=== PATIENT | female | born 1980 | race Caucasian/White ===

== ENCOUNTER 2016-06-30 12:41 | Emergency (ER) | payer OTHER ==
[2016-06-30 12:53] VITALS: TEMP 98.2; BMI 25.0
--- NOTE | 2016-06-30 13:15 | PDOC ---
History of Present Illness - History of Present Illness Initial Comments: 06/30/16 13:46 The patient is a 36 year old female with a past medical hx of prediabetes and UTI who presents to the ED complaining of vaginal discharge and itchiness for 1 week. She notes she had intercourse last week, and reports she felt vaginal burning. She reports she has had vaginal itching and discharge in March and went to her Doctor and was given medication. She notes she also had a Pap smear , which was normal. She reports she is on her third day of her menstrual period and has been experiencing LLQ abdominal pain since yesterday. She rates the abdominal pain as a 7/10 and describes the pain as crampy. The patient is also complaining of lower back pain that started 3 days ago. She denies a hx of STDs. She reports she has three children, two vaginal deliveries and one section, without complications. The patient denies fever, chills, sweats The patient denies chest pain, SOB The patient denies vomiting, diarrhea <Radha Vasques - Last Filed: 06/30/16 13:48> <Jackie Oh - Last Filed: 07/19/16 00:57> - General Chief Complaint: Pain, Acute Stated Complaint: ABD PAIN Time Seen by Provider: 06/30/16 13:09 Past History <Radha Vasques - Last Filed: 06/30/16 13:48> - Past Medical History GI Disorders: Yes (GERD) - Psycho/Social/Smoking Cessation Hx Suicidal Ideation: No Smoking History: Never smoked Have you smoked in the past 12 months: No Hx Alcohol Use: No Drug/Substance Use Hx: No <Jackie Oh - Last Filed: 07/19/16 00:57> - Past Medical History Allergies/Adverse Reactions: Allergies Allergy/AdvReac Type Severity Reaction Status Date / Time No Known Allergies Allergy Verified 06/30/16 12:48 Home Medications: Ambulatory Orders Omeprazole 20 mg PO DAILY 04/14/16 Naproxen [Naprosyn -] 500 mg PO BID PRN #14 tablet 06/30/16 Ranitidine [Zantac -] 150 mg PO BID 06/30/16 Review of Systems - Review of Systems Able to Perform ROS?: Yes Comments:: 06/30/16 13:47 CONSTITUTIONAL: Absent: fever, chills, diaphoresis, generalized weakness, malaise, loss of appetite HEENT: Absent: rhinorrhea, nasal congestion, throat pain, throat swelling, difficulty swallowing, mouth swelling, ear pain, eye pain, visual Changes CARDIOVASCULAR: Absent: chest pain, syncope, palpitations, irregular heart rate, lightheadedness , peripheral edema RESPIRATORY: Absent: cough, shortness of breath, dyspnea with exertion, orthopnea, wheezing, stridor, hemoptysis GASTROINTESTINAL: +LLQ pain. Absent: abdominal distension, nausea, vomiting, diarrhea, constipation, melena, hematochezia GENITOURINARY: +Vaginal discharge and itchiness. Absent: dysuria, frequency, urgency, hesitancy , hematuria, genital pain MUSCULOSKELETAL: Absent: myalgia, arthralgia, joint swelling SKIN: Absent: rash, itching, pallor HEMATOLOGIC/IMMUNOLOGIC: Absent: easy bleeding, easy bruising, lymphadenopathy, frequent infections ENDOCRINE: Absent: unexplained weight gain, unexplained weight loss, heat intolerance, cold intolerance NEUROLOGIC: Absent: headache, focal weakness or paresthesias, dizziness, unsteady gait, seizure, mental status changes, bladder or bowel incontinence PSYCHIATRIC: Absent: anxiety, depression, suicidal or homicidal ideation, hallucinations. <Radha Vasques - Last Filed: 06/30/16 13:48> *Physical Exam - Vital Signs Last Vital Signs Temp Pulse Resp BP Pulse Ox 98.2 F 74 19 114/77 98 06/30/16 12:48 06/30/16 12:48 06/30/16 12:48 06/30/16 12:48 06/30/16 12:48 - Physical Exam Comments: 06/30/16 13:48 GENERAL: Well developed, well nourished. Awake and alert. In no acute distress. HEENT: Normocephalic, atraumatic. PERRLA, EOMI. No conjunctival pallor. Sclera are non- icteric. Moist mucous membranes. Oropharynx is clear. NECK: Supple. Full ROM. No JVD. Carotid pulses 2+ and symmetric, without bruits. No thyromegaly. No lymphadenopathy. CARDIOVASCULAR: Regular rate and rhythm. No murmurs, rubs, or gallops. Distal pulses are 2+ and symmetric. PULMONARY: No evidence of respiratory distress. Lungs clear to auscultation bilaterally. No wheezing, rales or rhonchi. ABDOMINAL: +Suprapubic and LLQ tenderness. Soft. Non-distended. No rebound or guarding. No organomegaly. Normoactive bowel sounds. MUSCULOSKELETAL Normal range of motion at all joints. No bony deformities or tenderness. No CVA tenderness. EXTREMITIES: No cyanosis. No clubbing. No edema. No calf tenderness. SKIN: Warm and dry. Normal capillary refill. No rashes. No jaundice. NEUROLOGICAL: Alert, awake, appropriate. Cranial nerves 2-12 intact. No deficits to light touch and temperature in face, upper extremities and lower extremities. PSYCHIATRIC: Cooperative. Good eye contact. Appropriate mood and affect. <Radha Vasques - Last Filed: 06/30/16 13:48> - Vital Signs Last Vital Signs Temp Pulse Resp BP Pulse Ox 98.2 F 74 19 114/77 98 06/30/16 12:48 06/30/16 12:48 06/30/16 12:48 06/30/16 12:48 06/30/16 12:48 <Jackie Oh - Last Filed: 07/19/16 00:57> ED Treatment Course - LABORATORY CBC & Chemistry Diagram: 06/30/16 13:48 06/30/16 13:48 <Jackie Oh - Last Filed: 07/19/16 00:57> Medical Decision Making - Medical Decision Making 06/30/16 12:15 Patient seen and examined at bedside. Vitals, unremarkable. Patient looks she is in abdominal discomfort. Physical examination positive for abdominal tenderness in the LLQ and suprapubic area. Will order CBC, CMP, UA, test, Abdominal CT with IV contrast No pain medication needed as per the patient. 06/30/16 15:38 Patient reassessed. Waiting for Abdominal CT scan. Ordered GC amplification. 06/30/16 16:[address] scan of abdomen report reviewed, no evidence of colitis or acute diverticulitis. 1.8 x 1.3 cm right ovarian cyst/dorminant follicle with a small amount of free fluid on the cul-de-sac which is non specific. Retroverted Uterus with an IUD in place. To r/o tortion of ovary will order Transvaginal Ultrasound. Patient mentions her left ovary was removed after she had a cyst in 2000. A/P Abdominal pain most likely due to ovarian cyst CT report mentioned Transvaginal ultrasound ordered- Pending results Patient endorsed to Dr. José. Illness, Investigation and plan of care explained to the patient. She verbalized understanding. Case seen and discussed with Dr. Monterroso. <Jackie Oh - Last Filed: 07/19/16 00:57> *DC/Admit/Observation/Transfer <Radha Vasques - Last Filed: 06/30/16 13:48> <Jackie Oh - Last Filed: 07/19/16 00:57> Diagnosis at time of Disposition: Ovarian cyst - Discharge Dispostion Disposition: HOME Condition at time of disposition: Improved - Prescriptions Prescriptions: Naproxen [Naprosyn -] 500 mg PO BID PRN #14 tablet PRN Reason: Pain - Referrals Referrals: Lm Marsh MD [Staff Physician] - Kunal Beltran MD [Primary Care Provider] - - Patient Instructions Printed Discharge Instructions: DI for Ovarian Cyst Additional Instructions: Please follow up with an packaging operator doctor. Call to schedule an appointment. Take 500 mg naproxen every 12 hours as needed for pain. It may take several days before your symptoms improve. Print Language: TAMAZIGHT
[2016-06-30 13:58] LABS: URINE APPEARANCE CLEAR; URINE BILIRUBIN NEGATIVE (NEGATIVE); URINE BLOOD 3+ (NEGATIVE); URINE COLOR COLORLESS; URINE GLUCOSE (UA) NEGATIVE (NEGATIVE); URINE KETONE NEGATIVE (NEGATIVE); URINE LEUK ESTERASE NEGATIVE (NEGATIVE); URINE NITRITE NEGATIVE (NEGATIVE); URINE PROTEIN NEGATIVE (NEGATIVE); URINE UROBILINOGEN NEGATIVE E.U./dl (0.2-1.0)
[2016-06-30 14:04] LABS: URINE MUCUS RARE; URINE RBC <1 /hpf (0-3); URINE WBC 1 /hpf (3-5)
[2016-06-30 14:13] LABS: BASOPHIL 0.7 % (0-2.0); EOSINOPHIL 1.7 % (0-4.5); MCH 28.8 pg (25.7-33.7); MCHC 33.4 g/dl (32.0-36.0); MEAN CELL VOLUME 86.3 fl (80-96); MEAN PLT VOLUME 8.1 fl (7.5-11.1); NEUTROPHILS 78.1 % (42.8-82.8); PLATELET COUNT 260 K/MM3 (134-434); RDW 12.7 % (11.6-15.6); WHITE BLOOD COUNT 9.4 K/mm3 (4.0-10.0)
[2016-06-30 14:40] LABS: ALBUMIN 3.9 g/dl (3.4-5.0); ANION GAP 8 (8-16); BILIRUBIN,TOTAL 0.3 mg/dL (0.2-1.0); CALCIUM 8.7 mg/dL (8.5-10.1); CO2 26 mmol/L (21-32); CREATININE 0.5 mg/dL (0.55-1.02); GLUCOSE,RANDOM 101 mg/dL (74-106); SGOT/AST 9 U/L (15-37); SGPT/ALT 17 U/L (12-78); TOT PROT 7.2 g/dl (6.4-8.2)
[2016-06-30 14:41] LABS: ALK PHOS 60 U/L (45-117)
--- NOTE | 2016-06-30 15:37 | PDOC ---
Attending Attestation - Resident Resident Name: Mira Ohny - ED Attending Attestation I have performed the following: I have examined & evaluated the patient, The case was reviewed & discussed with the resident, I agree w/resident's findings & plan, Exceptions are as noted - HPI HPI: 06/30/16 15:36 The patient is a 36-year-old female, with no significant past medical history, who presents to the emergency department with mild left lower quadrant and suprapubic pain, which she has been experiencing intermittently for the last 3 days. She is currently menstruating. - Physicial Exam PE: 06/30/16 15:37 Serial abdominal examinations with extremely minimal tenderness to deep palpation in the suprapubic area and left lower quadrant - Medical Decision Making 06/30/16 15:37 Labs noted including normal white blood cell count, normal differential, normal CRP Repeat abdominal examination, soft and nontender 06/30/16 16:34 CT pending Repeat abdominal examination; soft and nontender 06/30/16 16:50 CT performed and pending Case discussed in detail with oncoming Emergency Physician including history, physical exam and ancillary studies. Oncoming Emergency Physician has assumed care for the patient and will complete the evaluation and treatment.
[2016-06-30] MEDS ORDERED: MAG HYDROX/AL HYDROX/SIMETH 30 ML UNIT-DOSE CUP PO ONE (15:54)
[2016-06-30] MEDS ORDERED: MAG HYDROX/AL HYDROX/SIMETH 30 ML UNIT-DOSE CUP ONE (16:10)
[2016-06-30 18:47] VITALS: BP 117/65; PULSE 71
[2016-06-30] MEDS ORDERED: NAPROXEN 500 MG TABLET (FP) PO ONE (20:29)
--- NOTE | 2016-06-30 20:30 | PDOC ---
*Physical Exam - Vital Signs Last Vital Signs Temp Pulse Resp BP Pulse Ox 98.2 F 71 17 117/65 98 06/30/16 12:48 06/30/16 18:30 06/30/16 18:30 06/30/16 18:30 06/30/16 18:30 ED Treatment Course - LABORATORY CBC & Chemistry Diagram: 06/30/16 13:48 06/30/16 13:48 - ADDITIONAL ORDERS Additional order review: Laboratory Results 06/30/16 06/30/16 06/30/16 14:00 13:48 13:18 Sodium 140 Potassium 3.9 Chloride 106 Carbon Dioxide 26 Anion Gap 8 BUN 10 Creatinine 0.5 L Creat Clearance w eGFR > 60 Random Glucose 101 Calcium 8.7 Total Bilirubin 0.3 AST 9 L ALT 17 D Alkaline Phosphatase 60 C-Reactive Protein < 0.3 Total Protein 7.2 Albumin 3.9 Urine Color Urine Appearance Urine pH Ur Specific [place] Urine Protein Urine Glucose (UA) Urine Ketones Urine Blood Urine Nitrite Urine Bilirubin Urine Urobilinogen Ur Leukocyte Esterase Urine RBC Urine WBC Ur Epithelial Cells Urine Mucus Urine HCG, Qual Negative 06/30/16 13:18 Sodium Potassium Chloride Carbon Dioxide Anion Gap BUN Creatinine Creat Clearance w eGFR Random Glucose Calcium Total Bilirubin AST ALT Alkaline Phosphatase C-Reactive Protein Total Protein Albumin Urine Color Colorless Urine Appearance Clear Urine pH 6.0 Ur Specific [place] 1.003 Urine Protein Negative Urine Glucose (UA) Negative Urine Ketones Negative Urine Blood 3+ H Urine Nitrite Negative Urine Bilirubin Negative Urine Urobilinogen Negative Ur Leukocyte Esterase Negative Urine RBC <1 Urine WBC 1 Ur Epithelial Cells Rare Urine Mucus Rare Urine HCG, Qual 06/30/16 13:48 RBC 4.39 MCV 86.3 MCHC 33.4 RDW 12.7 MPV 8.1 Neutrophils % 78.1 Lymphocytes % 14.9 Monocytes % 4.6 Eosinophils % 1.7 Basophils % 0.7 - Medications Given in the ED: ED Medications Discontinued Medications Generic Name Dose Route Start Last Admin Trade Name Freq PRN Reason Stop Dose Admin Al Hydroxide/Mg Hydroxide 30 ml 06/30/16 15:54 06/30/16 16:39 Mylanta Oral Suspension - PO 06/30/16 15:55 30 ml ONCE ONE Administration Medical Decision Making - Medical Decision Making 06/30/16 20:27 Sign-out received from outgoing Emergency Physician Dr. Corvini Pt interviewed and examined Ancillary studies reviewed Case discussed in detail with oncoming Emergency Physician including history, physical exam and ancillary studies. Vital Signs Temp Pulse Resp BP Pulse Ox 98.2 F 71 17 117/65 98 06/30/16 12:48 06/30/16 18:30 06/30/16 18:30 06/30/16 18:30 06/30/16 18:30 I had seen this patient and evaluated her after sign out. The patient has been having lower abdominal pain. CT scan reviewed. R ovarian cyst. Confirmed by ultrasound. Likely hemorrhagic cyst. Patient reports that currently is on her period. She has an IUD and no left ovary as it was taken out in the past. I had reviewed the blood work and the imaging with the patient. She understands that her pain is from the cyst. I will give her a referral to an clinical abstractor doctor. I discussed the physical exam findings, ancillary test results and final diagnoses with the patient. I answered all of the patient's questions. The patient was satisfied with the care received and felt comfortable with the discharge plan and treatment plan. The patient will call their primary care physician within 24 hours to arrange follow-up and will return to the Emergency Department with any new, persistant or worsening symptoms. *DC/Admit/Observation/Transfer Diagnosis at time of Disposition: Ovarian cyst Qualifiers: Laterality: right Qualified Code(s): N83.20 - Unspecified ovarian cysts - Discharge Dispostion Disposition: HOME Condition at time of disposition: Improved Admit: No - Prescriptions Prescriptions: Naproxen [Naprosyn -] 500 mg PO BID PRN #14 tablet PRN Reason: Pain - Referrals Referrals: Kunal Beltran MD [Primary Care Provider] - Lm Marsh MD [Staff Physician] - - Patient Instructions Printed Discharge Instructions: DI for Ovarian Cyst Additional Instructions: Please follow up with an clinical abstractor doctor. Call to schedule an appointment. Take 500 mg naproxen every 12 hours as needed for pain. It may take several days before your symptoms improve. Print Language: COMORAN
[2016-06-30] MEDS ORDERED: NAPROXEN 500 MG TABLET (FP) ONE (20:32)
== END 2016-06-30 21:23 | disposition home or self-care (01) ==
LOC: JER 12:41
DX: N83.201 Unspecified ovarian cyst, right side (principal); Z97.5 Presence of (intrauterine) contraceptive device
CPT/HCPCS: 36415; 74177-TC; 76830-TC; 80053; 81003; 81015; 84703; 85025; 86140; 87086; 87491; 87591; 99283-25; Q9967

== ENCOUNTER 2018-10-04 22:30 | Emergency (ER) | payer OTHER | END 2018-10-05 00:42 | disposition home or self-care (01) | LOC: JER 10-05 00:42 | PROC: 3E0337Z Introduction of Electrolytic and Water Balance Substance into Peripheral Vein, Percutaneous Approach (ICD-10-PCS; principal; 2018-10-04) | DX: K52.9 Noninfective gastroenteritis and colitis, unspecified (principal) ==

== ENCOUNTER 2019-03-07 13:30 | Emergency (ER) | payer OTHER ==
[2019-03-07 13:41] VITALS: BMI 24.0
[2019-03-07] MEDS ORDERED: METOCLOPRAMIDE HCL INJECTION 10 MG/2 ML VIAL IVPB ONE (15:01)
[2019-03-07] MEDS ORDERED: ONDANSETRON *ODT* 4 MG TABLET SL ONE (15:01)
[2019-03-07] MEDS ORDERED: SODIUM CHLORIDE 1,000 ML IV STA (15:02)
[2019-03-07] MEDS ORDERED: METOCLOPRAMIDE HCL INJECTION 10 MG/2 ML VIAL ONE (15:16)
[2019-03-07] MEDS ORDERED: ONDANSETRON *ODT* 4 MG TABLET ONE (15:16)
[2019-03-07 15:23] LABS: EOS % 0.9 % (0-4.5); HEMATOCRIT 39.3 % (32.4-45.2); HEMOGLOBIN 13.7 GM/dL (10.7-15.3); LYMPH % 10.7 % (8-40); MCH 30.5 pg (25.7-33.7); MCHC 34.7 g/dl (32.0-36.0); MEAN CELL VOLUME 87.8 fl (80-96); MEAN PLT VOLUME 8.2 fl (7.5-11.1); MONO % 3.6 % (3.8-10.2); NEUT % 83.8 % (42.8-82.8); PLATELET COUNT 307 K/MM3 (134-434); RBC 4.48 M/mm3 (3.60-5.2); WHITE BLOOD COUNT 12.9 K/mm3 (4.0-10.0)
[2019-03-07 15:39] LABS: EPI CELLS 7.5 /HPF (0-5/HPF); HYALINE CASTS 22 /lpf (0-8); URINE APPEARANCE CLOUDY; URINE BACTERIA 89.5 /hpf (NEGATIVE); URINE BILIRUBIN NEGATIVE (NEGATIVE); URINE COLOR YELLOW; URINE GLUCOSE (UA) NEGATIVE (NEGATIVE); URINE KETONE NEGATIVE (NEGATIVE); URINE LEUK ESTERASE 1+ (NEGATIVE); URINE NITRITE NEGATIVE (NEGATIVE); URINE PROTEIN TRACE (NEGATIVE); URINE RBC 6 /hpf (0-4); URINE UROBILINOGEN 0.2 mg/dL (0.2-1.0); URINE WBC 10 /hpf (0-5)
[2019-03-07] MEDS ORDERED: MECLIZINE HCL 25 MG TABLET (FP) ONE ×2 (15:42→18:51)
--- NOTE | 2019-03-07 16:00 | PDOC ---
History of Present Illness - General Chief Complaint: Lightheaded Stated Complaint: DIZZINESS/VOMITING Time Seen by Provider: 03/07/19 14:58 History Source: Patient Exam Limitations: Clinical Condition - History of Present Illness Initial Comments: 03/07/19 15:55 Patient with no significant past medical history presented with complaint of sudden onset of dizziness and spinning sensation upon with this morning with one episode of vomiting. Patient denies any trauma or injury to head. Denies blurry vision, change in vision or photosensitivity. Denies shortness of breath , chest pain, abdominal pain, urinary frequency, dysuria or burning with urination. Patient did not take anything for symptoms Is this a multiple visit Asthma Patient?: No Past History - Past Medical History Allergies/Adverse Reactions: Allergies Allergy/AdvReac Type Severity Reaction Status Date / Time No Known Allergies Allergy Verified 10/04/18 23:09 Home Medications: Ambulatory Orders Omeprazole 20 mg PO DAILY 04/14/16 Naproxen [Naprosyn -] 500 mg PO BID PRN #14 tablet 06/30/16 Ranitidine [Zantac -] 150 mg PO BID 06/30/16 Loperamide HCl/Simethicone [Imodium Multi-Symptom Rel Cplt] 1 each PO TID PRN # 15 tablet 10/05/18 COPD: No GI Disorders: Yes (GERD) - Reproductive History Therapeutic (s) & number: No - Immunization History Immunization Up to Date: No - Psycho Social/Smoking Cessation Hx Smoking History: Never smoked Have you smoked in the past 12 months: No Information on smoking cessation initiated: No Hx Alcohol Use: No Drug/Substance Use Hx: No Review of Systems - Review of Systems Able to Perform ROS?: Yes Is the patient limited Vietnamese proficient: No Constitutional: No: Chills, Fever, Malaise, Weakness HEENTM: No: Symptoms Reported, See HPI, Eye Pain, Blurred Vision, Tearing, Recent change in vision, Double Vision, Cataracts, Ear Pain, Ocular Prothesis, Ear Discharge, Nose Pain, Nose Congestion, Tinnitus, Nose Bleeding, Hearing Loss , Throat Pain, Throat Swelling, Mouth Pain, Dental Problems, Difficulty Swallowing, Mouth Swelling, Other Respiratory: No: Symptoms reported, See HPI, Cough, Orthopnea, Shortness of Breath, SOB with Exertion, SOB at Rest, Stridor, Wheezing, Productive cough, Hemoptysis, Other Cardiac (ROS): Yes: Symptoms Reported, See HPI, Lightheadedness. No: Chest Pain , Edema, Irregular Heart Rate, Palpitations, Syncope, Chest Tightness, Other ABD/GI: Yes: Symptoms Reported, See HPI, Nausea, Vomiting. No: Abd. Pain w/ defecation, Constipated, Diarrhea, Difficulty Swallowing, Rectal Bleeding, Abdominal cramping : No: Symptoms Reported, Burning, Discharge, Frequency, Hematuria, Pain, Urgency Musculoskeletal: No: Symptoms Reported Integumentary: No: Symptoms Reported Neurological: Yes: Symptoms reported, See HPI, Headache (mild headache), Dizziness. No: Numbness, Paresthesia, Pre-Existing Deficit, Seizure, Tingling, Tremors, Weakness, Unsteady Gait All Other Systems: Reviewed and Negative *Physical Exam - Vital Signs Last Vital Signs Temp Pulse Resp BP Pulse Ox 98.1 F 73 18 112/73 98 03/07/19 13:38 03/07/19 13:38 03/07/19 13:38 03/07/19 13:38 03/07/19 13:38 - Physical Exam Comments: 03/07/19 15:59 GENERAL: Well developed, well nourished. Awake and alert. No acute distress. HEENT: Normocephalic, atraumatic. PERRLA, EOMI. No conjunctival pallor. Sclera are non- icteric. Moist mucous membranes. Oropharynx is clear. NECK: Supple. Full ROM. No JVD. Carotid pulses 2+ and symmetric, without bruits. No lymphadenopathy. CARDIOVASCULAR: Regular rate and rhythm. No murmurs, rubs, or gallops. Distal pulses are 2+ and symmetric. PULMONARY: No evidence of respiratory distress. Lungs clear to auscultation bilaterally. No wheezing, rales or rhonchi. ABDOMINAL: Soft. Non-tender. Non-distended. No rebound or guarding. No organomegaly. Normoactive bowel sounds. MUSCULOSKELETAL Normal range of motion at all joints. No bony deformities or tenderness. No CVA tenderness. SKIN: Warm and dry. Normal capillary refill. No jaundice. NEUROLOGICAL: Alert, awake, appropriate. Cranial nerves 2-12 intact. No deficits to light touch in face, upper extremities and lower extremities. No motor deficits in the in face, upper extremities and lower extremities. Normal speech. Gait is normal without ataxia. PSYCHIATRIC: Cooperative. Good eye contact. Appropriate mood and affect. General Appearance: Yes: Nourished, Appropriately Dressed. No: Apparent Distress ED Treatment Course - LABORATORY CBC & Chemistry Diagram: 03/07/19 15:06 03/07/19 15:06 - ADDITIONAL ORDERS Additional order review: Laboratory Results 03/07/19 03/07/19 15:06 15:04 Urine Color Yellow Urine Appearance Cloudy Urine pH 7.0 Ur Specific [place] 1.021 Urine Protein Trace Urine Glucose (UA) Negative Urine Ketones Negative Urine Blood Negative Urine Nitrite Negative Urine Bilirubin Negative Urine Urobilinogen 0.2 Ur Leukocyte Esterase 1+ H Urine WBC (Auto) 10 Urine RBC (Auto) 6 Urine Casts (Auto) 22 U Epithel Cells (Auto) 7.5 Urine Bacteria (Auto) 89.5 Urine HCG, Qual Negative 03/07/19 15:06 RBC 4.48 MCV 87.8 MCHC 34.7 RDW 13.0 MPV 8.2 Neutrophils % 83.8 H D Lymphocytes % 10.7 D Monocytes % 3.6 L Eosinophils % 0.9 Basophils % 1.0 - Medications Given in the ED: ED Medications Discontinued Medications Generic Name Dose Route Start Last Admin Trade Name Freq PRN Reason Stop Dose Admin Metoclopramide HCl 10 mg 03/07/19 15:01 03/07/19 15:21 Reglan Injection - IVPB 03/07/19 15:02 10 mg ONCE ONE Administration Ondansetron HCl 4 mg 03/07/19 15:01 03/07/19 15:21 Zofran Odt - SL 03/07/19 15:02 4 mg ONCE ONE Administration Medical Decision Making - Medical Decision Making 03/07/19 15:56 Patient with no significant past medical history presented with complaint of sudden onset of dizziness and spinning sensation upon with this morning with one episode of vomiting. Patient denies any trauma or injury to head. Denies blurry vision, change in vision or photosensitivity. Denies shortness of breath , chest pain, abdominal pain, urinary frequency, dysuria or burning with urination. Patient did not take anything for symptoms. Patient reporting mother with a history of vertigo but denies self history of vertigo. Clinical exam unremarkable with normal neuro exam. Patient with nausea during exam. Symptoms likely vertigo versus less likely intracranial occupying mass versus UTI. CBC, CMP, UA urine culture lab ordered. IV hydration with normal saline ordered for hydration. Reglan 10 mg IV ordered for possible vertigo. Treat based on lab results. Reassess after 30 minutes 03/07/19 16:15 Patient with mild improvement post reglan. IV hydration still going. Patient signedout to oncoming AIR POLLUTION ANALYST Vladimir for f/u care Discharge - Discharge Information Problems reviewed: Yes Clinical Impression/Diagnosis: Dizziness Condition: Stable - Follow up/Referral - Patient Discharge Instructions - Post Discharge Activity
--- NOTE | 2019-03-07 17:52 | PDOC ---
*Physical Exam - Vital Signs Last Vital Signs Temp Pulse Resp BP Pulse Ox 98.4 F 63 19 110/61 100 03/07/19 17:35 03/07/19 17:35 03/07/19 17:35 03/07/19 17:35 03/07/19 17:35 ED Treatment Course - LABORATORY CBC & Chemistry Diagram: 03/07/19 15:06 03/07/19 17:05 - ADDITIONAL ORDERS Additional order review: Laboratory Results 03/07/19 03/07/19 03/07/19 15:06 15:06 15:04 Sodium Cancelled Potassium Cancelled Chloride Cancelled Carbon Dioxide Cancelled Anion Gap Cancelled BUN Cancelled Creatinine Cancelled Est GFR (CKD-EPI)AfAm Cancelled Est GFR (CKD-EPI)NonAf Cancelled Random Glucose Cancelled Calcium Cancelled Total Bilirubin Cancelled AST Cancelled ALT Cancelled Alkaline Phosphatase Cancelled Creatine Kinase Cancelled Troponin I Cancelled Total Protein Cancelled Albumin Cancelled Urine Color Yellow Urine Appearance Cloudy Urine pH 7.0 Ur Specific Hanna 1.021 Urine Protein Trace Urine Glucose (UA) Negative Urine Ketones Negative Urine Blood Negative Urine Nitrite Negative Urine Bilirubin Negative Urine Urobilinogen 0.2 Ur Leukocyte Esterase 1+ H Urine WBC (Auto) 10 Urine RBC (Auto) 6 Urine Casts (Auto) 22 U Epithel Cells (Auto) 7.5 Urine Bacteria (Auto) 89.5 Urine HCG, Qual Negative 03/07/19 15:06 RBC 4.48 MCV 87.8 MCHC 34.7 RDW 13.0 MPV 8.2 Neutrophils % 83.8 H D Lymphocytes % 10.7 D Monocytes % 3.6 L Eosinophils % 0.9 Basophils % 1.0 - Medications Given in the ED: ED Medications Discontinued Medications Generic Name Dose Route Start Last Admin Trade Name Freq PRN Reason Stop Dose Admin Sodium Chloride 1,000 mls @ 1,000 mls/hr 03/07/19 15:02 03/07/19 15:21 Normal Saline - IV 03/07/19 16:01 1,000 mls/hr ASDIR STA Administration Metoclopramide HCl 10 mg 03/07/19 15:01 03/07/19 15:21 Reglan Injection - IVPB 03/07/19 15:02 10 mg ONCE ONE Administration Ondansetron HCl 4 mg 03/07/19 15:03/07/19 15:21 Zofran Odt - SL 03/07/19 15:02 4 mg ONCE ONE Administration ED Progress Note - Progress Note Progress Note: 03/07/19 17:52 Received signout from CAM Craven Briefly this is a 39-year-old woman denies past medical history with sudden onset room spinning dizziness with nausea and one episode of vomiting starting today. Patient has received Reglan IV and normal saline. Laboratory testing is pending at this time will reassess after laboratory testing has been completed Medical Decision Making - Medical Decision Making 03/07/19 17:54 A/P: 39-year-old woman with dizziness pending results of laboratory testing for disposition Repeat exam is unremarkable. Patient reports improvement in symptoms after receiving Reglan. CMP was hemolyzed and was reordered. EKG order added Awaiting results of CMP and cardiac profile for disposition 03/07/19 18:53 CMP and cardiac profile are unremarkable. Patient was able to tolerate p.o.'s without difficulty. We will discharge patient home follow-up with her primary doctor for continued evaluation. I discussed the physical exam findings, ancillary test results and final diagnoses with the patient. I answered all of the patient's questions. The patient was satisfied with the care received and felt comfortable with the discharge plan and treatment plan. The patient will call their primary care physician within 24 hours to arrange follow-up and will return to the Emergency Department with any new, persistent or worsening symptoms. Discharge - Discharge Information Problems reviewed: Yes Clinical Impression/Diagnosis: BPPV (benign paroxysmal positional vertigo) Qualifiers: Laterality: unspecified laterality Qualified Code(s): H81.10 - Benign paroxysmal vertigo, unspecified ear Condition: Fair - Admission No - Additional Discharge Information Prescriptions: Diazepam [Valium] 5 mg PO Q8H PRN #10 tablet MDD 3 PRN Reason: Vertigo Meclizine HCl [Antivert -] 25 mg PO TID #90 tablet - Follow up/Referral - Patient Discharge Instructions Additional Instructions: Take meclizine as prescribed for dizziness. If that does not work you have volume to take just 5 mg every 8 hours as needed for dizziness. Your emergency department visit is not complete until you follow-up with your primary doctor. Keep well-hydrated Return to the emergency department for any new or worsening symptoms. Thank you very much for choosing us to provide your emergent health care needs. Odell dennis meclizina segn lo prescrito para los mareos. Si eso no funciona, tiene volumen para kavita solo 5 mg cada 8 horas segn sea necesario para mareos. Jones visita al departamento de emergencias no est completa hasta que ike un seguimiento con jones mdico de cabecera. Mantener sonia hidratado. Regrese al departamento de emergencias por cualquier sntoma nuevo o que empeore. Muchas radha por elegirnos para satisfacer olga necesidades de atencin mdica de emergencia. - Post Discharge Activity Work/Back to School Note: Back to Work
[2019-03-07 18:07] LABS: ALBUMIN 4.1 g/dl (3.4-5.0); ALK PHOS 73 U/L (45-117); ANION GAP 7 MMOL/L (8-16); BILIRUBIN,TOTAL 0.4 mg/dL (0.2-1); BLOOD UREA NITROGEN 12.1 mg/dL (7-18); CALCIUM 9.1 mg/dL (8.5-10.1); CHLORIDE 104 mmol/L (98-107); CO2 26 mmol/L (21-32); CREATININE 0.6 mg/dL (0.55-1.3); GLUCOSE,RANDOM 106 mg/dL (74-106); POTASSIUM 4.2 mmol/L (3.5-5.1); SGOT/AST 15 U/L (15-37); SGPT/ALT 29 U/L (13-61); SODIUM 136 mmol/L (136-145); TOT PROT 7.7 g/dl (6.4-8.2)
[2019-03-07 18:20] VITALS: BP 114/65; PULSE 76; TEMP 98
[2019-03-07] MEDS ORDERED: MECLIZINE HCL 25 MG TABLET (FP) PO ONE (18:49)
== END 2019-03-07 19:03 | disposition home or self-care (01) ==
LOC: JER 13:30
PROC: 3E033GC Introduction of Other Therapeutic Substance into Peripheral Vein, Percutaneous Approach (ICD-10-PCS; principal; 2019-03-07)
DX: H81.10 Benign paroxysmal vertigo, unspecified ear (principal); K21.9 Gastro-esophageal reflux disease without esophagitis
CPT/HCPCS: 36415; 80053; 81003; 82550; 84484; 84703; 85025; 87086; 99284-25; J7030; Q0162

== ENCOUNTER 2019-07-28 20:16 | Emergency (ER) | payer OTHER ==
[2019-07-28 20:18] VITALS: BP 121/76; PULSE 97; TEMP 98.9
--- NOTE | 2019-07-28 20:23 | PDOC ---
Rapid Medical Evaluation Chief Complaint: Respiratory Time Seen by Provider: 07/28/19 20:17 Medical Evaluation: Allergies Allergy/AdvReac Type Severity Reaction Status Date / Time No Known Allergies Allergy Verified 10/04/18 23:09 Vital Signs Temp Pulse Resp BP Pulse Ox 98.9 F 97 H 20 121/76 100 07/28/19 20:17 07/28/19 20:17 07/28/19 20:17 07/28/19 20:17 07/28/19 20:17 07/28/19 20:17 I have performed a brief in-person evaluation of this patient. The patient presents with a chief complaint of: No sig Pmhx present with complains of 3 days h/o dry cough, nasal congestion, runny nose and malaise. Denies fever, chills, N/V,dizziness, CP. Denies recent travel or known contact with any one with covid Pertinent physical exam findings: lungs CTAB in NAD. pt afebrile. normal cardio. A&O x 3 A/P: 39yo with no PMHx present with complains of 3 days h/o URI symptoms. Pt clinical exam unremarkable stable for d/c on outpatient conservation management on Tessalon perles for cough, atrovent nasal congestion and medrol-joaquin with advice to increase fluid intake with PCP f/u Discharge Disposition - Diagnosis URI, acute - Discharge Dispostion Disposition: HOME Condition at time of disposition: Stable Decision to Admit order: No - Prescriptions Prescriptions: Ipratropium Unity 2 spray NS BID PRN 5 Days #1 spray PRN Reason: nasal congestion Methylprednisolone [Medrol Dose Joaquin] 4 mg PO ASDIR #21 tablet Benzonatate [Tessalon Pearls -] 100 mg PO TID PRN #21 capsule PRN Reason: Cough - Referrals - Patient Instructions Printed Discharge Instructions: [facility]-Coronavirus Instructions Additional Instructions: Your symptoms is likely viral symptoms. Take prescribed medications as prescribed for cough and congestion. Increase fluid intake. wear mask at all times until improved symptoms and refrain from public gatherings - Post Discharge Activity
== END 2019-07-28 20:53 | disposition home or self-care (01) ==
LOC: JER 20:16
DX: J06.9 Acute upper respiratory infection, unspecified (principal)
CPT/HCPCS: 99283-25

== ENCOUNTER 2021-03-02 16:53 | Emergency (ER) | payer OTHER ==
[2021-03-02 17:39] VITALS: BP 114/76; PULSE 69; TEMP 98; BMI 29.2
[2021-03-02 19:29] LABS: BASO % 0.8 % (0-2.0); EOS % 4.3 % (0-4.5); LYMPH % 29.4 % (8-40); MCH 29.3 pg (25.7-33.7); MCHC 34.2 g/dl (32.0-36.0); MEAN CELL VOLUME 85.7 fl (80-96); MEAN PLT VOLUME 7.6 fl (7.5-11.1); MONO % 4.5 % (3.8-10.2); PLATELET COUNT 307 10^3/uL (134-434); RBC 4.43 M/mm3 (3.60-5.2); RDW 13.1 % (11.6-15.6); WHITE BLOOD COUNT 9.6 K/mm3 (4.0-10.0)
[2021-03-02 19:48] LABS: CHLORIDE 107 mmol/L (98-107); SODIUM 138 mmol/L (136-145)
[2021-03-02 19:49] LABS: CALCIUM 9.1 mg/dL (8.5-10.1)
[2021-03-02 19:50] LABS: ANION GAP 9 MMOL/L (8-16); CO2 23 mmol/L (21-32); GLUCOSE,RANDOM 99 mg/dL (74-106)
[2021-03-02 19:53] LABS: CREATININE 0.6 mg/dL (0.55-1.3)
== END 2021-03-02 19:48 | disposition home or self-care (01) ==
LOC: JER 16:53
DX: N93.9 Abnormal uterine and vaginal bleeding, unspecified (principal)
CPT/HCPCS: 36415; 80048; 84702; 85025; 99283-25

== ENCOUNTER 2021-10-31 13:29 | Emergency (ER) | payer OTHER ==
[2021-10-31 13:35] VITALS: BP 109/73; PULSE 84; TEMP 97.9; BMI 30.1
[2021-10-31] MEDS ORDERED: IBUPROFEN 600 MG TABLET (FP) PO ONE ×2 (14:14→14:15)
== END 2021-10-31 15:19 ==
LOC: JER 13:29
DX: J06.9 Acute upper respiratory infection, unspecified (principal)
CPT/HCPCS: 0241U-QW; 99283-25

== ENCOUNTER 2023-05-07 05:08 | Emergency (ER) | payer OTHER ==
[2023-05-07 05:24] VITALS: BMI 30.2
[2023-05-07] MEDS ORDERED: ACETAMINOPHEN 1000 MG/100 ML BAG IVPB ONE ×2 (07:35→07:36)
[2023-05-07] MEDS ORDERED: LACTATED RINGERS SOLUTION 1000 ML INFUS.BAG IV ONE ×2 (07:35→07:36)
[2023-05-07] MEDS ORDERED: ACETAMINOPHEN INJECTION 100 ML IVPB ONE (07:39)
[2023-05-07 08:20] LABS: INR 1.15 (0.83-1.09); PROTHROMBIN TIME (PATIENT) 13.3 SEC (9.7-13.0)
[2023-05-07 08:27] LABS: POTASSIUM 3.9 mmol/L (3.5-5.1)
[2023-05-07 08:29] LABS: CALCIUM 8.7 mg/dL (8.5-10.1)
[2023-05-07 08:30] LABS: ALBUMIN 4.1 g/dl (3.4-5.0); BLOOD UREA NITROGEN 7.2 mg/dL (7-18); MAGNESIUM 2.1 mg/dL (1.8-2.4)
[2023-05-07 08:32] LABS: HEMATOCRIT 35.3 % (32.4-45.2); HEMOGLOBIN 12.2 GM/dL (10.7-15.3); MCH 29.9 pg (25.7-33.7); MCHC 34.5 g/dl (32.0-36.0); MEAN CELL VOLUME 86.5 fl (80-96); MEAN PLT VOLUME 8.8 fl (7.5-11.1); PLATELET COUNT 334 10^3/uL (134-434); RBC 4.08 M/mm3 (3.60-5.2); RDW 13.4 % (11.6-15.6)
[2023-05-07 08:34] LABS: CREATININE 0.6 mg/dL (0.55-1.3); WHITE BLOOD COUNT 6.1 K/mm3 (4.0-10.0)
[2023-05-07 08:35] LABS: BILIRUBIN,TOTAL 0.2 mg/dL (0.2-1); TOT PROT 7.6 g/dl (6.4-8.2)
[2023-05-07 09:22] LABS: ANISOCYTOSIS 1+; MACROCYTOSIS 0
[2023-05-07 09:29] VITALS: BP 123/76; PULSE 73; RESP 19; TEMP 98.1
== END 2023-05-07 09:45 | disposition home or self-care (01) ==
LOC: JER 05:08
PROC: 3E033NZ Introduction of Analgesics, Hypnotics, Sedatives into Peripheral Vein, Percutaneous Approach (ICD-10-PCS; principal; 2023-05-07)
DX: R42 Dizziness and giddiness (principal); R53.1 Weakness; R05.9 Cough, unspecified; J10.1 Influenza due to other identified influenza virus with other respiratory manifestations; Z20.822 Contact with and (suspected) exposure to COVID-19
CPT/HCPCS: 0241U-QW; 36415; 80053; 83735; 84703; 85025; 85610; 99284-25

== ENCOUNTER 2023-12-21 01:26 | Emergency (ER) | payer OTHER ==
[2023-12-21 02:03] VITALS: BP 128/72; PULSE 72; RESP 18; TEMP 97.8; BMI 30.2
[2023-12-21] MEDS ORDERED: ONDANSETRON *ODT* 4 MG TABLET ONE (03:14)
[2023-12-21] MEDS ORDERED: FAMOTIDINE 20 MG TABLET ONE (03:14)
[2023-12-21] MEDS ORDERED: ACETAMINOPHEN 500 MG TABLET (FP) ONE (03:17)
[2023-12-21] MEDS: ONDANSETRON *ODT* 4 MG TABLET SL ONE (03:28)
[2023-12-21] MEDS: FAMOTIDINE 20 MG TABLET PO ONE (03:28)
[2023-12-21] MEDS: ACETAMINOPHEN 500 MG TABLET (FP) PO ONE (03:28)
[2023-12-21] MEDS: MAG HYDROX/ALH/SMC/DPHA/LIDO 240 ML MOUTHWASH MM ONE (03:40)
== END 2023-12-21 04:39 | disposition home or self-care (01) ==
LOC: JER 01:26
DX: K30 Functional dyspepsia (principal); R10.13 Epigastric pain
CPT/HCPCS: 99283-25; Q0162

== ENCOUNTER 2024-02-11 17:46 | Emergency (ER) | payer OTHER ==
[2024-02-11 17:51] VITALS: BP 120/79; PULSE 88; RESP 18; TEMP 98.8; BMI 25.6
[2024-02-11] MEDS ORDERED: KETOROLAC TROMETHAMINE 30 MG/1 ML VIAL ONE (18:26)
[2024-02-11] MEDS ORDERED: ACETAMINOPHEN 500 MG TABLET (FP) ONE (18:26)
[2024-02-11] MEDS ORDERED: AMOX TR/POT CLAV 875MG/125MG TABLETS (FP) ONE (18:26)
[2024-02-11] MEDS: KETOROLAC TROMETHAMINE 30 MG/1 ML VIAL IM ONE (18:34)
[2024-02-11] MEDS: ACETAMINOPHEN 500 MG TABLET (FP) PO ONE (18:35)
[2024-02-11] MEDS: AMOX TR/POT CLAV 875MG/125MG TABLETS (FP) PO ONE (18:35)
== END 2024-02-11 18:37 | disposition home or self-care (01) ==
LOC: JERFT 17:46
PROC: 3E0133Z Introduction of Anti-inflammatory into Subcutaneous Tissue, Percutaneous Approach (ICD-10-PCS; principal; 2024-02-11)
DX: K08.89 Other specified disorders of teeth and supporting structures (principal); K04.7 Periapical abscess without sinus
CPT/HCPCS: 99284-25